=== PATIENT | male | born 1985 | race Hispanic/Latino ===

== ENCOUNTER 2022-06-21 15:32 | Inpatient (IN) | payer SELFPAY ==
--- OUTSIDE RECORDS SUMMARY | 2022-06-21 15:38 | XMS REPORT | Continuity of Care Document ---
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 2019-09-25 2019-09-25 Outpatient Alcanter, MHPL MHPL [id number] 19:01:55 21:10:00 Britney Wilson 2019-09-25 2019-09-25 Emergency E ALCANTER, MHBL MHBL [id number] MHBL 19:01:00 21:10:00 BRITNEY 2019-09-14 2019-09-14 Outpatient MHIE MHIE [id number] Memoria 14:00:00 14:00:00 07 flaquita Bubba 2019-09-14 2019-09-14 Outpatient MHIE MHIE [id number] Memoria 14:00:00 14:00:00 07 flaquita Mac 2018-04-11 2018-04-12 Outpatient nullFlavo MHMG [id number] Memoria 14:45:00 05:59:59 r Primary 06 l Bobby Reinoso 2018-04-11 2018-04-12 Outpatient nullFlavo MHMG [id number] Memoria 14:45:00 05:59:59 r Primary 06 l Bobby Reinoso 2018-04-11 2018-04-11 Outpatient Ajit, MHMG MHMG [id number] 08:45:00 23:59:59 Nixon Juan 06 2018-04-11 2018-04-11 Outpatient MHIE MHIE [id number] Memoria 08:45:00 08:45:00 06 flaquita Mac 2018-03-24 2018-03-26 Phone nullFlavo MHMG [id number] Memoria 21:08:00 05:59:59 Message r Primary 04 l Bobby Reinoso 2018-03-24 2018-03-26 Phone nullFlavo MHMG [id number] Memoria 21:08:00 05:59:59 Message r Primary 04 l Bobby Reinoso 2018-03-24 2018-03-25 Outpatient MHMG MHMG [id number] 15:08:00 23:59:59 04 2018-03-24 2018-03-25 Outpatient MHMG MHMG [id number] 15:08:00 23:59:59 04 2017-08-22 2017-08-22 Ambulatory nullFlavo MHMG [id number] Memoria 14:15:00 14:15:00 Pre-Reg r Primary 05 l Bobby Reinoso 2017-08-22 2017-08-22 Ambulatory nullFlavo MHMG [id number] Memoria 14:15:00 14:15:00 Pre-Reg r Primary 05 l Bobby Bessa 2017-08-22 2017-08-22 Outpatient MHIE MHIE [id number] Memoria 09:15:00 09:15:00 05 flaquita Mac 2017-08-22 2017-08-22 Outpatient Vadim, MHMG MHMG [id number] 09:15:00 09:15:00 Zoya 2017-08-15 2017-08-17 Phone nullFlavo MHMG [id number] Memoria 12:49:00 04:59:59 Message r Primary 03 flaquita Reinoso 2017-08-15 2017-08-17 Phone nullFlavo MHMG [id number] Memoria 12:49:00 04:59:59 Message r Primary 03 flaquita Reinoso 2017-08-15 2017-08-16 Outpatient MHMG MHMG [id number] 07:49:00 23:59:59 2017-08-13 2017-08-15 Phone nullFlavo MHMG [id number] Memoria 15:53:00 04:59:59 Message r Primary 02 flaquita Reinoso 2017-08-13 2017-08-15 Phone nullFlavo MHMG [id number] Memoria 15:53:00 04:59:59 Message r Primary 02 flaquita Reinoso 2017-08-13 2017-08-14 Outpatient MHMG MHMG [id number] 10:53:00 23:59:59 02 2017-08-12 2017-08-14 Phone nullFlavo MHMG [id number] Memoria 13:56:00 04:59:59 Message r Primary 01 flaquita Reinoso 2017-08-12 2017-08-14 Phone nullFlavo MHMG [id number] Memoria 13:56:00 04:59:59 Message r Primary 01 flaquita Reinoso 2017-08-12 2017-08-13 Outpatient MHMG MHMG [id number] 08:56:00 23:59:59 2016-11-26 2016-11-26 Outpatient MHIE MHIE [id number] Memoria 14:15:00 14:15:00 04 flaquita Mac 2016-11-26 2016-11-26 Outpatient MHIE MHIE [id number] Memoria 14:15:00 14:15:00 04 flaquita Mac 2016-10-04 2016-10-04 Outpatient MHIE MHIE [id number] Memoria 16:15:00 16:15:00 03 flaquita Mac 2016-10-04 2016-10-04 Outpatient MHIE MHIE [id number] Memoria 16:15:00 16:15:00 03 flaquita Mac 2016-02-29 2016-02-29 Outpatient MHIE MHIE [id number] Memoria 09:00:00 09:00:00 02 flaquita Mac 2016-02-29 2016-02-29 Outpatient MHIE MHIE [id number] Memoria 09:00:00 09:00:00 02 flaquita Mac 2016-02-02 2016-02-02 Outpatient MHIE MHIE [id number] Memoria 16:15:00 16:15:00 01 flaquita Mac 2016-02-02 2016-02-02 Outpatient MHIE MHIE [id number] Memoria 16:15:00 16:15:00 01 flaquita Mac 2011-10-13 2011-10-13 Emergency nullFlavo [id number] Memoria 19:06:00 19:07:00 r [place] 01 flaquita Mac 2011-10-13 2011-10-13 Emergency nullFlavo [id number] Memoria 19:06:00 19:07:00 r [place] 01 flaquita Mac 2011-03-12 2011-03-12 Emergency [facility] [id number] 17:42:00 19:32:00 -[id number] [facility] Results Test Description Test Time Test Comments Results Result Comments Source CHEMISTRY 2022-04-11 14:28:00 Test Item Value Reference Range Interpretation Comme nts Vitamin B12 Lvl (test code = Vitamin B12 Lvl) [phone] [facility]YdltettGVMPAARGE9687-37-28 14:25:00 Test Item Value Reference Range Interpretation Comments Hgb A1C (test code = Hgb A1C) 5.5 [facility] ClinicDkolienHZSACKASDX1987-10-83 14:25:00 Test Item Value Reference Range Interpretation Comments WBC (test code = WBC) 5.0 3.8-10.8 [facility]ivyhavAYOMMCYAGO6176-66-16 14:25:00 Test Item Value Reference Range Interpretation Comments RBC (test code = RBC) 5.19 4.20-5.80 [facility] HospitalNvctugbQKLIMFZOBV7614-07-02 14:25:00 Test Item Value Reference Range Interpretation Comments Hgb (test code = Hgb) 15.3 13.2-17.1 [facility]ZjowslzXWDAHVIWHA8783-45-39 14:25:00 Test Item Value Reference Range Interpretation Comments Hct (test code = Hct) 44.0 38.5-50.0 [facility] CenterWrwlnasSZBSOQWBQR5162-58-57 14:25:00 Test Item Value Reference Range Interpretation Comments MCV (test code = MCV) 84.8 80.0-100.0 [facility] CenterWjwxmgnANWSOWQZNS7941-21-89 14:25:00 Test Item Value Reference Range Interpretation Comments MCH (test code = MCH) 29.5 pg 27.0-33.0 [facility] CenterWvuzbniCTDMVWFFLK0017-13-73 14:25:00 Test Item Value Reference Range Interpretation Comments MCHC (test code = MCHC) 34.8 32.0-36.0 [facility] CenterEvuiqqfBICKHNQLXT7447-28-17 14:25:00 Test Item Value Reference Range Interpretation Comments RDW (test code = RDW) 12.4 11.0-15.0 [place] 311553-02-22 14:25:00 Test Item Value Reference Range Interpretation Comments Platelet (test code = Platelet) 323 140-400 [facility] CenterUnjngxrOMPQZXAAVK7242-86-80 14:25:00 Test Item Value Reference Range Interpretation Comments MPV (test code = MPV) 8.7 7.5-12.5 [place] 311553-02-22 14:25:00 Test Item Value Reference Range Interpretation Comments Neutrophils # (test code = Neutrophils 3205 7287-6654 #) [facility] CenterQygusjhGCEHGGTWWF1914-16-09 14:25:00 Test Item Value Reference Range Interpretation Comments Lymphocytes # (test code = Lymphocytes 8233 290-2774 #) [facility] CenterCxuyzanXUYCBJRDDV1509-85-94 14:25:00 Test Item Value Reference Range Interpretation Comments Monocytes # (test code = Monocytes #) 310 200-950 [place] 311553-02-22 14:25:00 Test Item Value Reference Range Interpretation Comments Eosinophils # (test code = Eosinophils 210 15-500 #) [facility] CenterIjtungbNDVPQIEAKI9953-70-48 14:25:00 Test Item Value Reference Range Interpretation Comments Basophils # (test code 20 See_Comment [Aut omated message] The = Basophils #) system which generated this result tra nsmitted reference range : <=200. The reference r flakita was not used to int erpret this result as normal/abnormal . [facility] CenterQppdrxhFAQMJCOFDT2126-82-93 14:25:00 Test Item Value Reference Range Interpretation Comments Segs (test code = Segs) 64.1 [facility] CenterZnlhhqxBIFLSTIBTH9358-57-05 14:25:00 Test Item Value Reference Range Interpretation Comments Lymphocytes (test code = Lymphocytes) 25.1 [facility] CenterDpdcoxfHURQMUEZDH2542-83-74 14:25:00 Test Item Value Reference Range Interpretation Comments Monocytes (test code = Monocytes) 6.2 [facility] CenterPahutkyPOZECLHVNR7917-75-75 14:25:00 Test Item Value Reference Range Interpretation Comments Eosinophils (test code = Eosinophils) 4.2 [facility] CenterSdojynvLBXDBJUMQV3125-20-62 14:25:00 Test Item Value Reference Range Interpretation Comments Basophils (test code = Basophils) 0.4 [facility]HswdsdzXZDDHIXGK6603-38-69 14:25:00 Test Item Value Reference Range Interpretation Comments Glucose Lvl (test code = Glucose Lvl) 96 65-99 [facility]anoDjtvbxyDCNFRDRJF7081-25-47 14:25:00 Test Item Value Reference Range Interpretation Comments BUN (test code = BUN) 10 7-25 [facility]anoEqrwzteVAURKAQDA9495-65-34 14:25:00 Test Item Value Reference Range Interpretation Comments Creatinine Lvl (test code = Creatinine 0.78 0.60-1.26 Lvl) [facility]anoGxyvozmEPXCAABHW5006-71-54 14:25:00 Test Item Value Reference Range Interpretation Comments eGFR (test code = eGFR) 118 [facility]anoLfaihdnZMSVWZYVW6097-24-53 14:25:00 Test Item Value Reference Range Interpretation Comments B/C Ratio (test code = B/C NOT APPLICABLE 08-09 Ratio) [facility]anoHqtflxwKXOBBPKAJ7611-76-46 14:25:00 Test Item Value Reference Range Interpretation Comments Sodium Lvl (test code = Sodium Lvl) 131 135-146 [facility] PlanoTytrihaBZIWRGCZT6350-44-20 14:25:00 Test Item Value Reference Range Interpretation Comments Potassium Lvl (test code = Potassium 4.8 3.5-5.3 Lvl) [facility]anoHpytprpYUOUENYRN1067-64-39 14:25:00 Test Item Value Reference Range Interpretation Comments Chloride Lvl (test code = Chloride Lvl) 97 98-110 [facility]anoPdxxbvkBZNRNPXTZ1349-10-16 14:25:00 Test Item Value Reference Range Interpretation Comments CO2 (test code = CO2) 26 20-32 [facility] PlanoBheisusTWIVWRRLQ0439-00-02 14:25:00 Test Item Value Reference Range Interpretation Comments Calcium Lvl (test code = Calcium Lvl) 9.7 8.6-10.3 [facility]anoIkhlpojXCCWSDELY5301-43-93 14:25:00 Test Item Value Reference Range Interpretation Comments Total Protein (test code = Total 7.5 6.1-8.1 Protein) [facility]anoOqsblipTDNMSAUCL9223-10-92 14:25:00 Test Item Value Reference Range Interpretation Comments Albumin Lvl (test code = Albumin Lvl) 4.6 3.6-5.1 [facility] PlanoJalptmcQIAFRALHR6594-96-65 14:25:00 Test Item Value Reference Range Interpretation Comments Globulin (test code = Globulin) 2.9 1.9-3.7 [facility] PlanoVoeslebDXCVABVJS6612-85-85 14:25:00 Test Item Value Reference Range Interpretation Comments A/G Ratio (test code = A/G Ratio) 1.6 1.0-2.5 [facility] PlanoVhyvswoQOJDDVCTA2105-27-09 14:25:00 Test Item Value Reference Range Interpretation Comments Bili Total (test code = Bili Total) 0.5 0.2-1.2 [facility] PlanoEcpldpwGGAEWXBTJ8501-34-53 14:25:00 Test Item Value Reference Range Interpretation Comments Alk Phos (test code = Alk Phos) 88 36-130 [facility] PlanoIkizjxiHHNCXRUOY5436-79-66 14:25:00 Test Item Value Reference Range Interpretation Comments AST (test code = AST) 17 10-40 [facility] PlanoZtvloumLQCKGXXEO4479-08-07 14:25:00 Test Item Value Reference Range Interpretation Comments ALT (test code = ALT) 25 9-46 [facility] PlanoSlsxhycMILRZEVKF2372-02-68 14:25:00 Test Item Value Reference Range Interpretation Comments TSH (test code = TSH) 1.82 0.40-4.50 [facility] PlanoHmxvjvdSUXEWMFLV0963-67-41 14:25:00 Test Item Value Reference Range Interpretation Comments Chol (test code = Chol) 231 [facility] PlanoFqweuxbPNOVCCUSR3665-52-39 14:25:00 Test Item Value Reference Range Interpretation Comments HDL (test code = HDL) 57 [facility] PlanoIrnvzmxEKENEJQAT1920-07-16 14:25:00 Test Item Value Reference Range Interpretation Comments Trig (test code = Trig) 83 [facility] PlanoInqamnqNVQOJSUPG0020-12-62 14:25:00 Test Item Value Reference Range Interpretation Comments LDL (Calculated) (test code = LDL 155 (Calculated)) [facility] PlanoQsifchaAPEDXGOPP9788-20-40 14:25:00 Test Item Value Reference Range Interpretation Comments Chol/HDL Ratio (test code = Chol/HDL 4.1 Ratio) [facility] PlanoVedxelnPDAAQONLY2842-99-27 14:25:00 Test Item Value Reference Range Interpretation Comments Non HDL Chol (test code = Non HDL Chol) 174 [facility] PlanoJtcmtuqDJIBMECKX2353-71-76 14:22:00 Test Item Value Reference Range Interpretation Comments Carbamaz Lvl (test code = Carbamaz Lvl) 10.9 4.0-12.0 [facility] AP1432-16-76 10:47:00 [facility] : 1985 Sex: M [facility] [address] [place] [address] Patient Name: BENJIE WILSON MR #: [id number] : 1985 Age/Sex: 35/M Req#: [id number] Adm Physician: Ordered by: TRUPTI COVARRUBIAS DO Report #: [id number] Location: Room/Bed: _ Procedure: [id number] CT/CT BRAIN WO Exam Date: 08/15/21 Exam Time: 1027 REPORT STATUS: Signed CT BRAIN WO CLINICAL INDICATION: Dizziness COMPARISON: None TECHNIQUE: Noncontrast axial CT imaging of the brain, skull and face. Coronal and sagittal reformats are provided. DOSE REDUCTION: Dose modulation, iterative reconstruction, and/or weight-based adjustment of the mA/kV was utilized to reduce the radiation dose to as low as reasonably achievable. FINDINGS: No intracranial hemorrhage, midline shift or mass effect. Midline structures are normally developed. 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 No hydrocephalus. Orbits are within normal limits. Hyperdense fillingof the right sphenoid and ethmoid sinuses. Scattered areas of nonhyperdense filling within the rightfrontal and left sphenoid sinuses. Postoperative changes from bilateral sphenoethmoid anatomy is an maxillary antrostomies. No calvarial fracture. No significant soft tissue swelling. 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 3.Right-sided paranasal sinus disease with hyperdense filling, which may represent fungal sinusitis. Signed by: Marciano Park on08/15/2021 10:47 AM Dictated By: MARCIANO PARK MD 1049 Transcribed By: TOM on 08/15/21 1047 COPY TO: TRUPTI COVARRUBIAS SINGLE (PORTABLE)2021-08-15 10:43:00 [facility] GIANFRANCO : 1985 Sex: M [place] [address] Patient Name: BENJIE WILSON MR #: [id number] : 1985 Age/Sex: 35/M Req#: [id number] Adm Physician: Ordered by: TRUPTI COVARRUBIAS DO Report #: [id number] Location: ER Room/Bed: _ Procedure: [id number] DX/CHEST SINGLE (PORTABLE) Exam Date: 08/15/21 Exam Time: 1021 REPORT STATUS: Signed Exam: CHEST SINGLE (PORTABLE) Date: 08/15/2021 10:39 AM Indication:Congestion Comparison: None FINDINGS: Lines/Tubes/Devices: None Lungs/pleura:Lungs are well inflated. No focal consolidation or pulmonary edema. No pleural effusion. No pneumothorax. Heart/Mediastinum:Magnified by portable technique.Bones/Soft Tissues: No acute osseous abnormality. Upper abdomen: Unremarkable. IMPRESSION: No focal airspace consolidation, effusion or pneumothorax. Signed by: Antonio Rodriguez on 08/15/2021 10:43 AM Dictated By: ANTONIO RODRIGUEZ MD 1046 Transcribed By:TOM on 08/15/21 1043 COPY TO: TRUPTI COVARRUBIAS DOCXTKSQKSDEGX0472-61-34 21:09:00 Test Item Value Reference Range Interpretation Comments WBC X 10x3 (test code = WBC X 10x3) 5.5 3.8-10.8 [facility] CenterWjzqxfnWHRAXJMQQE9294-31-63 21:09:00 Test Item Value Reference Range Interpretation Comments RBC X 10x6 (test code = RBC X 10x6) 5.04 4.20-5.80 [facility] CenterEvyzgxmPNNVFMVOPJ6257-00-30 21:09:00 Test Item Value Reference Range Interpretation Comments Hgb (test code = Hgb) 14.9 13.2-17.1 [facility] CenterLttpyxeYAIPFKXTNZ4637-09-05 21:09:00 Test Item Value Reference Range Interpretation Comments Hct (test code = Hct) 43.0 38.5-50.0 [facility] CenterHmkcfreYIECGHLZHI9102-18-45 21:09:00 Test Item Value Reference Range Interpretation Comments MCV (test code = MCV) 85.3 80.0-100.0 [facility] CenterUsppcbdGHKZKZLNEX8583-44-18 21:09:00 Test Item Value Reference Range Interpretation Comments MCH (test code = MCH) 29.6 pg 27.0-33.0 [facility] CenterDtjgtiiUYZOLLAEYU2444-49-09 21:09:00 Test Item Value Reference Range Interpretation Comments MCHC (test code = MCHC) 34.7 32.0-36.0 [facility] CenterStevkyxXAYWDTJBJO3939-39-53 21:09:00 Test Item Value Reference Range Interpretation Comments RDW (test code = RDW) 12.4 11.0-15.0 [facility] CenterZczdmzcPZPXRXGOIX6893-89-80 21:09:00 Test Item Value Reference Range Interpretation Comments Platelet (test code = Platelet) 268 140-400 [facility] CenterRsbyzvdXTOJEWMJWZ4473-15-84 21:09:00 Test Item Value Reference Range Interpretation Comments MPV (test code = MPV) 9.9 7.5-12.5 [facility] CenterJdrmjuvYZILQERQCY9590-35-73 21:09:00 Test Item Value Reference Range Interpretation Comments Neutrophils # (test code = Neutrophils 2563 3877-0676 #) [facility] CenterGwvholaIXIDQPFVLG1719-23-37 21:09:00 Test Item Value Reference Range Interpretation Comments Lymphocytes # (test code = Lymphocytes 6278 820-4776 #) [facility] CenterTwctokrKYOTTNJCMW4655-86-10 21:09:00 Test Item Value Reference Range Interpretation Comments Monocytes # (test code = Monocytes #) 440 200-950 [facility] CenterUcorsawAIBUBMKORW4814-10-60 21:09:00 Test Item Value Reference Range Interpretation Comments Eosinophils # (test code = Eosinophils 732 15-500 #) [facility]XdgvtlwERCDTSKSQG4488-20-74 21:09:00 Test Item Value Reference Range Interpretation Comments Basophils # (test code 28 See_Comment [Aut omated message] The = Basophils #) system which generated this result tra nsmitted reference range : <=200. The reference r flakita was not used to int erpret this result as normal/abnormal . [facility] HospitalEttxrkdCQOTKDQRFD9666-78-96 21:09:00 Test Item Value Reference Range Interpretation Comments Segs (test code = Segs) 46.6 [facility] HospitalNebsodvZECNIRRUMW0127-27-33 21:09:00 Test Item Value Reference Range Interpretation Comments Lymphocytes (test code = Lymphocytes) 31.6 [facility] HospitalMuibhmvRONCVOKACY5671-01-46 21:09:00 Test Item Value Reference Range Interpretation Comments Monocytes (test code = Monocytes) 8.0 [facility] HospitalLpomeknMAOULBPJCC8510-58-26 21:09:00 Test Item Value Reference Range Interpretation Comments Eosinophils (test code = Eosinophils) 13.3 [facility]landsOnxorrsPFOJLWFNJM3157-53-63 21:09:00 Test Item Value Reference Range Interpretation Comments Basophils (test code = Basophils) 0.5 [facility] ClinicGkcbzehJSEMZBNIAC7924-83-61 21:09:00 Test Item Value Reference Range Interpretation Comments Carbamaz Lvl (test code = Carbamaz Lvl) 11.8 4.0-12.0 [facility] ZZPJSBEHU8365-45-15 21:06:00 Test Item Value Reference Range Interpretation Comments Hgb A1C (test code = Hgb A1C) 5.3 [facility] METABOLIC PANEL (34232)2020-11-02 13:23:03 Test Item Value Reference Range Interpretation Comments NA (test code = 128 mmol/L 135-145 L 0861429002) K (test code = 4.6 mmol/L 3.5-5.0 0297555797) CL (test code = 94 mmol/L 98-108 L 5656329461) CO2 TOTAL (test code = 23 mmol/L 23-31 4016342817) AGAP (test code = 2-16 1203489003) BUN (test code = 9 mg/dL 7-23 2890235419) GLUCOSE (test code = 100 mg/dL 70-110 7211987942) CREATININE (test code = 0.73 mg/dL 0.60-1.25 6142073270) TOTAL BILI (test code = 0.4 mg/dL 0.1-1.9 7709114536) CALCIUM (test code = 9.6 mg/dL 8.6-10.6 7054227484) T PROTEIN (test code = 8.5 g/dL 6.3-8.2 H 1824191272) ALBUMIN (test code = 4.9 g/dL 3.5-5.0 9312113799) ALK PHOS (test code = 84 U/L 34-122 4173992637) ALTv (test code = 33 U/L 5-50 1742-6) AST(SGOT) (test code = 31 U/L 13-40 2136168863) eGFR (test code = mL/min/1.73m2 5292681357) ELIZABETH (test code = ELIZABETH) Association of Glomerular Filtration Rate (GFR) and Staging of Kidney Disease* + --+ --+ ------+| GFR (mL/min/1.73 m2) ?| With Kidney Damage ?| ?Without Kidney Damage+ --------+ --------+ +| ?>90 ?| ?Stage one ?| ? Normal ?+ ---+ ---+ -------+| ?60-89 ?| ?Stage two ?| ? Decreased GFR ? + --+ --+ ------+| ?30-59 ?| ?Stage three ?| ? Stage three ? + --+ --+ ------+| ?15-29 ?| ?Stage four ? | ? Stage four ?+ ---+ ---+ -------+| ?<15 (or dialysis) ? ?| ?Stage five ? | ? Stage five ?+ ---+ ---+ -------+ *Each stage assumes the associated GFR level has been in effect for at least three months. ?Stages 1 to 5, with or without kidney disease, indicate chronic kidney disease. Notes: Determination of stages one and two (with eGFR >59mL/min/1.73 m2) requires estimation of kidney damage for at least three months as defined by structural or functional abnormalities of the kidney, manifested by either:Pathological abnormalities or Markers of kidney damage (including abnormalities in the composition of the blood or urine or abnormalities in imaging tests). Lab Interpretation Abnormal (test code = 26398-7) [facility]. METABOLIC PANEL (85196)2020-11-02 13:23:03 Test Item Value Reference Range Interpretation Comments NA (test code = 128 mmol/L 135-145 L 5685382186) K (test code = 4.6 mmol/L 3.5-5.0 1987217456) CL (test code = 94 mmol/L 98-108 L 1520731907) CO2 TOTAL (test code = 23 mmol/L 23-31 7647668526) AGAP (test code = 2-16 0310106412) BUN (test code = 9 mg/dL 7-23 7631644760) GLUCOSE (test code = 100 mg/dL 70-110 9478223624) CREATININE (test code = 0.73 mg/dL 0.60-1.25 7059791730) TOTAL BILI (test code = 0.4 mg/dL 0.1-1.4 8336430520) CALCIUM (test code = 9.6 mg/dL 8.6-10.6 5564889030) T PROTEIN (test code = 8.5 g/dL 6.3-8.2 H 5933608651) ALBUMIN (test code = 4.9 g/dL 3.5-5.0 8524626810) ALK PHOS (test code = 84 U/L 34-122 8482946342) ALTv (test code = 33 U/L 5-50 1742-6) AST(SGOT) (test code = 31 U/L 13-40 0639638108) eGFR (test code = mL/min/1.73m2 2907013750) ELIZABETH (test code = ELIZABETH) Association of Glomerular Filtration Rate (GFR) and Staging of Kidney Disease* + --+ --+ ------+| GFR (mL/min/1.73 m2) ?| With Kidney Damage ?| ?Without Kidney Damage+ --------+ --------+ +| ?>90 ?| ?Stage one ?| ? Normal ?+ ---+ ---+ -------+| ?60-89 ?| ?Stage two ?| ? Decreased GFR ? + --+ --+ ------+| ?30-59 ?| ?Stage three ?| ? Stage three ? + --+ --+ ------+| ?15-29 ?| ?Stage four ? | ? Stage four ?+ ---+ ---+ -------+| ?<15 (or dialysis) ? ?| ?Stage five ? | ? Stage five ?+ ---+ ---+ -------+ *Each stage assumes the associated GFR level has been in effect for at least three months. ?Stages 1 to 5, with or without kidney disease, indicate chronic kidney disease. Notes: Determination of stages one and two (with eGFR >59mL/min/1.73 m2) requires estimation of kidney damage for at least three months as defined by structural or functional abnormalities of the kidney, manifested by either:Pathological abnormalities or Markers of kidney damage (including abnormalities in the composition of the blood or urine or abnormalities in imaging tests). Lab Interpretation Abnormal (test code = 42510-2) [facility] WITH [id number] 13:17:24 Test Item Value Reference Range Interpretation Comments WBC (test code = See_Comment [Automated 2390-2) message] The sy stem which generated this result transmitted reference range : 4.20 - 10.70 10*3/?L. The reference range was not used to interpret this result as normal/abnormal . RBC (test code = See_Comment [Automated 139-8) message] The sy stem which generated this result transmitted reference range : 4.26 - 5.52 10*6/?L. The reference range was not used to interpret this result as normal/abnormal . HGB (test code = 15.2 g/dL 12.2-16.4 718-7) HCT (test code = 43.5 % 38.4-49.3 4544-3) MCV (test code = 84.6 fL 81.7-95.6 787-2) MCH (test code = 29.6 pg 26.1-32.7 785-6) MCHC (test code = 34.9 g/dL 31.2-35.0 786-4) RDW-SD (test code = 34.9 fL 38.5-51.6 L 74385-7) RDW-CV (test code = 11.4 % 12.1-15.4 L 788-0) PLT (test code = See_Comment [Automated 777-3) message] The sy stem which generated this result transmitted reference range : 150 - 328 10*3/ ?L. The reference r flakita was not used to interpret this result as normal/abnormal . MPV (test code = 8.7 fL 9.8-13.0 L 42573-0) NRBC/100 WBC (test See_Comment [Automat ed code = [id number]) message] The system which generated this result transmitted reference range : 0.0 - 10.0 /100 WBCs. The refer ence range was not u sed to interpret th is result as normal/abnormal . NRBC x10^3 (test code <0.01 See_Comment [Auto mated = [id number]) message] The s ystem which generated this result transmitted reference range : 10*3/?L. The reference range was not used to interpret this result as normal/abnormal . GRAN MAT (NEUT) % 57.8 % (test code = 770-8) IMM GRAN % (test code 0.20 % = 3421672524) LYMPH % (test code = 29.0 % 736-9) MONO % (test code = 6.9 % 5905-5) EOS % (test code = 5.7 % 713-8) BASO % (test code = 0.4 % 706-2) GRAN MAT x10^3(ANC) 2.83 10*3/uL 1.99-6.95 (test code = 5862186555) IMM GRAN x10^3 (test <0.03 0.00-0.06 code = 4892820605) LYMPH x10^3 (test code 1.42 10*3/uL 1.09-3.23 = 731-0) MONO x10^3 (test code 0.34 10*3/uL 0.36-1.02 L = 742-7) EOS x10^3 (test code = 0.28 10*3/uL 0.06-0.53 711-2) BASO x10^3 (test code <0.03 0.01-0.09 = 704-7) Lab Interpretation Abnormal (test code = 37406-2) [facility] WITH [id number] 13:17:24 Test Item Value Reference Range Interpretation Comments WBC (test code = See_Comment [Automated 6690-2) message] The sy stem which generated this result transmitted reference range : 4.20 - 10.70 10*3/?L. The reference range was not used to interpret this result as normal/abnormal . RBC (test code = See_Comment [Automated 789-8) message] The sy stem which generated this result transmitted reference range : 4.26 - 5.52 10*6/?L. The reference range was not used to interpret this result as normal/abnormal . HGB (test code = 15.2 g/dL 12.2-16.4 718-7) HCT (test code = 43.5 % 38.4-49.3 4544-3) MCV (test code = 84.6 fL 81.7-95.6 787-2) MCH (test code = 29.6 pg 26.1-32.7 785-6) MCHC (test code = 34.9 g/dL 31.2-35.0 786-4) RDW-SD (test code = 34.9 fL 38.5-51.6 L 37553-2) RDW-CV (test code = 11.4 % 12.1-15.4 L 788-0) PLT (test code = See_Comment [Automated 777-3) message] The sy stem which generated this result transmitted reference range : 150 - 328 10*3/ ?L. The reference r flakita was not used to interpret this result as normal/abnormal . MPV (test code = 8.7 fL 9.8-13.0 L 81750-2) NRBC/100 WBC (test See_Comment [Automat ed code = 7243658843) message] The system which generated this result transmitted reference range : 0.0 - 10.0 /100 WBCs. The refer ence range was not u sed to interpret th is result as normal/abnormal . NRBC x10^3 (test code <0.01 See_Comment [Auto mated = 5473020254) message] The s ystem which generated this result transmitted reference range : 10*3/?L. The reference range was not used to interpret this result as normal/abnormal . GRAN MAT (NEUT) % 57.8 % (test code = 770-8) IMM GRAN % (test code 0.20 % = 2319458477) LYMPH % (test code = 29.0 % 736-9) MONO % (test code = 6.9 % 5905-5) EOS % (test code = 5.7 % 713-8) BASO % (test code = 0.4 % 706-2) GRAN MAT x10^3(ANC) 2.83 10*3/uL 1.99-6.95 (test code = 7286030146) IMM GRAN x10^3 (test <0.03 0.00-0.06 code = 5008831937) LYMPH x10^3 (test code 1.42 10*3/uL 1.09-3.23 = 731-0) MONO x10^3 (test code 0.34 10*3/uL 0.36-1.02 L = 742-7) EOS x10^3 (test code = 0.28 10*3/uL 0.06-0.53 711-2) BASO x10^3 (test code <0.03 0.01-0.09 = 704-7) Lab Interpretation Abnormal (test code = 82759-4) [id number] 22:18:00 Test Item Value Reference Range Interpretation Comments Creatinine Lvl (test code = Creatinine 0.77 0.60-1.35 Lvl) [facility] [id number] 22:18:00 Test Item Value Reference Range Interpretation Comments eGFR NON-AFR. THAI (test code = 118 eGFR NON-AFR. THAI) [facility] [id number] 22:18:00 Test Item Value Reference Range Interpretation Comments eGFR (test code = eGFR 136 ) [facility] [id number] 22:18:00 Test Item Value Reference Range Interpretation Comments B/C Ratio (test code = B/C NOT APPLICABLE 08-09 Ratio) [facility] [id number] 22:18:00 Test Item Value Reference Range Interpretation Comments Sodium Lvl (test code = Sodium Lvl) 125 135-146 [place] [id number] 22:18:00 Test Item Value Reference Range Interpretation Comments Potassium Lvl (test code = Potassium 4.1 3.5-5.3 Lvl) [facility]2020-11-16 22:18:00 Test Item Value Reference Range Interpretation Comments Chloride Lvl (test code = Chloride Lvl) 91 98-110 [facility]2020-11-16 22:18:00 Test Item Value Reference Range Interpretation Comments CO2 (test code = CO2) 26 20-32 [facility]2020-11-16 22:18:00 Test Item Value Reference Range Interpretation Comments Calcium Lvl (test code = Calcium Lvl) 9.4 8.6-10.3 [facility]2020-11-16 22:18:00 Test Item Value Reference Range Interpretation Comments Total Protein (test code = Total 7.4 6.1-8.1 Protein) [facility]2020-11-16 22:18:00 Test Item Value Reference Range Interpretation Comments Albumin Lvl (test code = Albumin Lvl) 4.5 3.6-5.1 [facility]2020-11-16 22:18:00 Test Item Value Reference Range Interpretation Comments Globulin (test code = Globulin) 2.9 1.9-3.7 [facility]2020-11-16 22:18:00 Test Item Value Reference Range Interpretation Comments A/G Ratio (test code = A/G Ratio) 1.6 1.0-2.5 [facility]2020-11-16 22:18:00 Test Item Value Reference Range Interpretation Comments Bili Total (test code = Bili Total) 0.4 0.2-1.2 [facility]2020-11-16 22:18:00 Test Item Value Reference Range Interpretation Comments Alk Phos (test code = Alk Phos) 64 36-130 [facility]2020-11-16 22:18:00 Test Item Value Reference Range Interpretation Comments ASPARTATE TRANSAMINASE (test code = 23 10-40 ASPARTATE TRANSAMINASE) [facility]2020-11-16 22:18:00 Test Item Value Reference Range Interpretation Comments ALANINE AMINOTRANSFERASE (test code = 23 9-46 ALANINE AMINOTRANSFERASE) [facility]hkCQOYYSOPKQ8966[facility]-38 22:18:00 Test Item Value Reference Range Interpretation Comments WBC X 10x3 (test code = WBC X 10x3) 4.6 3.8-10.8 [facility]MwwrzaaLGGYCHREKQ5308-38-97 22:18:00 Test Item Value Reference Range Interpretation Comments RBC X 10x6 (test code = RBC X 10x6) 4.69 4.20-5.80 [facility] CenterAewcuazPWXNZVWPDT5587-49-46 22:18:00 Test Item Value Reference Range Interpretation Comments Hgb (test code = Hgb) 14.3 13.2-17.1 [facility] CenterKxnmuzvHVALCGLIBD8657-07-57 22:18:00 Test Item Value Reference Range Interpretation Comments Hct (test code = Hct) 40.8 38.5-50.0 [facility] CenterRjgrxugUVXSQNSISX3755-55-96 22:18:00 Test Item Value Reference Range Interpretation Comments MCV (test code = MCV) 87.0 80.0-100.0 [facility] CenterHrmqclbBQGAKDPPVQ0978-22-52 22:18:00 Test Item Value Reference Range Interpretation Comments MCH (test code = MCH) 30.5 pg 27.0-33.0 [facility] CenterItewfkpKCPGPGQLTA3071-88-75 22:18:00 Test Item Value Reference Range Interpretation Comments MCHC (test code = MCHC) 35.0 32.0-36.0 [facility] CenterEtwdyjbKRNTBEUCAP9650-96-54 22:18:00 Test Item Value Reference Range Interpretation Comments RDW (test code = RDW) 13.0 11.0-15.0 [facility] CenterLykddrtHTXWEAOXLP3004-86-16 22:18:00 Test Item Value Reference Range Interpretation Comments Platelet (test code = Platelet) 271 140-400 [facility] CenterYeeoxniYFNKTLOIZZ1067-48-91 22:18:00 Test Item Value Reference Range Interpretation Comments MPV (test code = MPV) 9.4 7.5-12.5 [facility] CenterRlnseumFVADTJNUYT4827-53-63 22:18:00 Test Item Value Reference Range Interpretation Comments Neutrophils # (test code = Neutrophils 2461 4402-1887 #) [facility] CenterJjcupovRZKFTGFXNA2093-04-24 22:18:00 Test Item Value Reference Range Interpretation Comments Lymphocytes # (test code = Lymphocytes 0423 109-1473 #) [facility] CenterItfwiknFYKLHBAFAL5871-85-97 22:18:00 Test Item Value Reference Range Interpretation Comments Monocytes # (test code = Monocytes #) 423 200-950 [facility] CenterSvjrcmpWUUEKKHFJL5451-00-89 22:18:00 Test Item Value Reference Range Interpretation Comments Eosinophils # (test code = Eosinophils 322 15-500 #) [facility]NryvqieHMDHGREDEC1665-03-26 22:18:00 Test Item Value Reference Range Interpretation Comments Basophils # (test code 9 See_Comment [Aut omated message] The = Basophils #) system which generated this result tra nsmitted reference range : <=200. The reference r flaktia was not used to int erpret this result as normal/abnormal . [facility]landsFrcyfszPLTGTWXCPO6633-61-90 22:18:00 Test Item Value Reference Range Interpretation Comments Segs (test code = Segs) 53.5 [facility] ClinicXgbgcniGHTMYUANZL9613-77-00 22:18:00 Test Item Value Reference Range Interpretation Comments Lymphocytes (test code = Lymphocytes) 30.1 [facility] ClinicQzsnqhiCGBNEUGVOQ0011-45-97 22:18:00 Test Item Value Reference Range Interpretation Comments Monocytes (test code = Monocytes) 9.2 [facility]landsNhjpswdKWCLODFGSA3014-17-26 22:18:00 Test Item Value Reference Range Interpretation Comments Eosinophils (test code = Eosinophils) 7.0 [facility]landsMyjfpsxGFJCSKLCRC6194-69-13 22:18:00 Test Item Value Reference Range Interpretation Comments Basophils (test code = Basophils) 0.2 [facility] ClinicXyfhirzONSZASACJH3669-91-68 22:18:00 Test Item Value Reference Range Interpretation Comments Carbamaz Lvl (test code = Carbamaz Lvl) 12.6 4.0-12.0 [facility]landsT[facility] [id number] 22:18:00 Test Item Value Reference Range Interpretation Comments Glucose Lvl (test code = Glucose Lvl) 84 65-99 [facility] [id number] 22:18:00 Test Item Value Reference Range Interpretation Comments BUN (test code = BUN) 12 7-25 [facility] [id number] 22:18:00 Test Item Value Reference Range Interpretation Comments Creatinine Lvl (test code = Creatinine 0.77 0.60-1.35 Lvl) [facility] [id number] 22:18:00 Test Item Value Reference Range Interpretation Comments eGFR NON-AFR. THAI (test code = 118 eGFR NON-AFR. THAI) [facility] [id number] 22:18:00 Test Item Value Reference Range Interpretation Comments eGFR (test code = eGFR 136 ) [facility]landsKarrot RewardsADVENTHEALTH HENDERSONVILLEMFPCH1882-92-17 22:18:00 Test Item Value Reference Range Interpretation Comments B/C Ratio (test code = B/C NOT APPLICABLE 08-09 Ratio) [facility]2020-11-16 22:18:00 Test Item Value Reference Range Interpretation Comments Sodium Lvl (test code = Sodium Lvl) 125 135-146 [facility]landsKarrot RewardsADVENTHEALTH HENDERSONVILLETRRPC0657-22-00 22:18:00 Test Item Value Reference Range Interpretation Comments Potassium Lvl (test code = Potassium 4.1 3.5-5.3 Lvl) [facility]2020-11-16 22:18:00 Test Item Value Reference Range Interpretation Comments Chloride Lvl (test code = Chloride Lvl) 91 98-110 [facility]landsKarrot RewardsADVENTHEALTH HENDERSONVILLEMNITZ0132-44-13 22:18:00 Test Item Value Reference Range Interpretation Comments CO2 (test code = CO2) 26 20-32 [facility]landsTail [id number] 22:18:00 Test Item Value Reference Range Interpretation Comments Calcium Lvl (test code = Calcium Lvl) 9.4 8.6-10.3 [facility]2020-11-16 22:18:00 Test Item Value Reference Range Interpretation Comments Total Protein (test code = Total 7.4 6.1-8.1 Protein) [facility]landsKarrot RewardsADVENTHEALTH HENDERSONVILLEAHWXJ3475-61-51 22:18:00 Test Item Value Reference Range Interpretation Comments Albumin Lvl (test code = Albumin Lvl) 4.5 3.6-5.1 [facility]landsT[facility] [id number] 22:18:00 Test Item Value Reference Range Interpretation Comments Globulin (test code = Globulin) 2.9 1.9-3.7 [place] [id number] 22:18:00 Test Item Value Reference Range Interpretation Comments A/G Ratio (test code = A/G Ratio) 1.6 1.0-2.5 [facility]2020-11-16 22:18:00 Test Item Value Reference Range Interpretation Comments Bili Total (test code = Bili Total) 0.4 0.2-1.2 [facility]landsKarrot RewardsADVENTHEALTH HENDERSONVILLEUQUID0728-86-88 22:18:00 Test Item Value Reference Range Interpretation Comments Alk Phos (test code = Alk Phos) 64 36-130 [facility]2020-11-16 22:18:00 Test Item Value Reference Range Interpretation Comments ASPARTATE TRANSAMINASE (test code = 23 10-40 ASPARTATE TRANSAMINASE) [facility]2020-11-16 22:18:00 Test Item Value Reference Range Interpretation Comments ALANINE AMINOTRANSFERASE (test code = 23 9-46 ALANINE AMINOTRANSFERASE) [facility] CenterVksycfnYYIJIEIVSS5959-64-10 22:18:00 Test Item Value Reference Range Interpretation Comments WBC X 10x3 (test code = WBC X 10x3) 4.6 3.8-10.8 [facility] CenterDjpgxgtLDSQVKETQF2873-53-84 22:18:00 Test Item Value Reference Range Interpretation Comments RBC X 10x6 (test code = RBC X 10x6) 4.69 4.20-5.80 [place] [address]-11-16 22:18:00 Test Item Value Reference Range Interpretation Comments Hgb (test code = Hgb) 14.3 13.2-17.1 [facility] CenterIervdmlMVMYMWNKPI9634-57-73 22:18:00 Test Item Value Reference Range Interpretation Comments Hct (test code = Hct) 40.8 38.5-50.0 [place] [address]-11-16 22:18:00 Test Item Value Reference Range Interpretation Comments MCV (test code = MCV) 87.0 80.0-100.0 [place] 311550-11-16 22:18:00 Test Item Value Reference Range Interpretation Comments MCH (test code = MCH) 30.5 pg 27.0-33.0 [place] 311550-11-16 22:18:00 Test Item Value Reference Range Interpretation Comments MCHC (test code = MCHC) 35.0 32.0-36.0 [place] 311550-11-16 22:18:00 Test Item Value Reference Range Interpretation Comments RDW (test code = RDW) 13.0 11.0-15.0 [place] [address]-11-16 22:18:00 Test Item Value Reference Range Interpretation Comments Platelet (test code = Platelet) 271 140-400 [place] 311550-11-16 22:18:00 Test Item Value Reference Range Interpretation Comments MPV (test code = MPV) 9.4 7.5-12.5 [facility] CenterGitanjkXBIPPCNQJG1496-16-60 22:18:00 Test Item Value Reference Range Interpretation Comments Neutrophils # (test code = Neutrophils 2461 4704-4353 #) [facility] ClinicSnyacrnHDINOTAZVK6565-79-89 22:18:00 Test Item Value Reference Range Interpretation Comments Lymphocytes # (test code = Lymphocytes 5589 032-6324 #) [facility]VuebjkrKAGJSYICFG4326-14-62 22:18:00 Test Item Value Reference Range Interpretation Comments Monocytes # (test code = Monocytes #) 423 200-950 [facility] HospitalNxeymavVJTOWVLBVT2116-18-26 22:18:00 Test Item Value Reference Range Interpretation Comments Eosinophils # (test code = Eosinophils 322 15-500 #) [facility] HospitalBsjpmyeZONNXWDBFQ1435-86-67 22:18:00 Test Item Value Reference Range Interpretation Comments Basophils # (test code 9 See_Comment [Aut omated message] The = Basophils #) system which generated this result tra nsmitted reference range : <=200. The reference r flakita was not used to int erpret this result as normal/abnormal . [facility] CenterBbtnnbiHXQSHFLNOL6151-77-30 22:18:00 Test Item Value Reference Range Interpretation Comments Segs (test code = Segs) 53.5 [facility] CenterNcaisyzFNMVANFBRZ4635-03-52 22:18:00 Test Item Value Reference Range Interpretation Comments Lymphocytes (test code = Lymphocytes) 30.1 [facility] CenterXdzflbxVURORERXJO6395-50-30 22:18:00 Test Item Value Reference Range Interpretation Comments Monocytes (test code = Monocytes) 9.2 [facility] CenterIqmejrgKBXHRGRYIH3312-06-26 22:18:00 Test Item Value Reference Range Interpretation Comments Eosinophils (test code = Eosinophils) 7.0 [facility] HospitalYwjqxhrSFFLDHTJPP7376-63-09 22:18:00 Test Item Value Reference Range Interpretation Comments Basophils (test code = Basophils) 0.2 [facility] ClinicUgpwjzdDVYPSBPRVI5561-08-63 22:18:00 Test Item Value Reference Range Interpretation Comments Carbamaz Lvl (test code = Carbamaz Lvl) 12.6 4.0-12.0 [facility] [id number] 22:18:00 Test Item Value Reference Range Interpretation Comments Glucose Lvl (test code = Glucose Lvl) 84 65-99 [facility] RZBQO9120-62-17 22:18:00 Test Item Value Reference Range Interpretation Comments BUN (test code = BUN) 12 7-25 [facility]"
[2022-06-21 16:49] LABS: Absolute Lymphocytes (CBC) 1.5 K/uL (0.7-4.9); Hematocrit 42.4 % (39.6-49.0); Lymphocytes % 27.2 % (15.3-44.8); MCV 83.8 fL (80-100); MPV 6.7 fL (7.6-11.3); RBC Red Blood Cell Count 5.05 M/uL (4.33-5.43)
[2022-06-21] MEDS ORDERED: ONDANSETRON 4 MG/2 ML VIAL ONE (17:04)
[2022-06-21] MEDS ORDERED: NA CHLORIDE 0.9% 1,000 ML ONE (17:04)
[2022-06-21] MEDS ORDERED: KETOROLAC 30 MG/ML INJ ONE (17:04)
[2022-06-21 17:10] LABS: Albumin 4.3 g/dL (3.4-5.0); Bilirubin Total 0.3 mg/dL (0.2-1.0); Potassium 3.6 mEq/L (3.5-5.1); Protein, Total 8.1 g/dL (6.4-8.2)
--- NOTE | 2022-06-21 17:32 | RAD REPORT ---
EXAM DESCRIPTION: CTAbdomen Pelvis W Contrast - 06/21/2022 5:17 pm CLINICAL HISTORY: Abdominal pain. ABD PAIN COMPARISON: <Comparisons> TECHNIQUE: Biphasic CT imaging of the abdomen and pelvis was performed with 100 ml non-ionic IV cont rast. All CT scans are performed using dose optimization technique as appropriate and may include automated exposure control or mA/KV adjustment according to patient size. FINDINGS: The lung bases are clear. The liver, spleen, pancreas, adrenal glands and kidneys are within normal limits. 24 mm benign right renal cyst. No bowel obstruction, free air, free fluid or abscess. Mild to moderate colonic stool. The appendix i s normal. No evidence of significant lymphadenopathy. No suspicious bony findings. Small fat containing left inguinal hernia. IMPRESSION: No acute intra-abdominal or pelvic finding.
--- NOTE | 2022-06-21 17:46 | ER ---
Nurse's Notes [facility] Name: Martin Wilson Age: 36 yrs Sex: Male : 1985 Arrival Date: 06/21/2022 Time: 15:32 Bed 12 Private MD: Diagnosis: Hyponatremia Presentation: 06/21 15:45 Chief complaint: Patient states: RLQ pain that began on Saturday. Pt denies aa5 nausea/vomiting. Coronavirus screen: At this time, the client does not indicate any symptoms associated with coronavirus-19. Ebola Screen: Patient denies travel to an Ebola-affected area in the 21 days before illness onset. Initial Sepsis Screen: Does the patient meet any 2 criteria? No. Patient's initial sepsis screen is negative. Does the patient have a suspected source of infection? No. Patient's initial sepsis screen is negative. Risk Assessment: Do you want to hurt yourself or someone else? Patient reports no desire to harm self or others. Onset of symptoms was June 2022. 15:45 Acuity: MIKE 3 aa5 15:45 Method Of Arrival: Ambulatory aa5 Historical: - Allergies: 15:46 No Known Allergies; aa5 - PMHx: 15:46 seizures; aa5 - PSHx: 15:46 Tonsillectomy; polyps from nasal cavity; aa5 - Immunization history:: Adult Immunizations unknown. - Social history:: Smoking status: Patient denies any tobacco usage or history of. Screenin:53 [facility] ED Fall Risk Assessment (Adult) History of falling in the last 3 months, mb9 including since admission No falls in past 3 months (0 pts) Confusion or Disorientation No (0 pts) Intoxicated or Sedated No (0 pts) Impaired Gait No (0 pts) Mobility Assist Device Used No (0 pt) Altered Elimination No (0 pt) Score/Fall Risk Level 0 - 2 = Low Risk Oriented to surroundings, Maintained a safe environment, Educated pt \T\ family on fall prevention, incl call for assistance when getting out of bed. Abuse screen: Denies threats or abuse. Nutritional screening: No deficits noted. Tuberculosis screening: No symptoms or risk factors identified. Assessment: 16:52 General: Appears uncomfortable, Behavior is calm, cooperative, appropriate for age. mb9 Pain: Complains of pain in abdomen Pain does not radiate. Quality of pain is described as throbbing, Pain began suddenly. Neuro: Level of Consciousness is awake, alert, obeys commands, Oriented to person, place, time, situation, Appropriate for age. Cardiovascular: Patient's skin is warm and dry. Respiratory: Airway is patent Respiratory effort is even, unlabored, Respiratory pattern is regular, symmetrical. GI: Abdomen is round non-distended, Bowel sounds present X 4 quads. Abd is soft Abdomen is tender to palpation in right lower quadrant. Derm: Skin is pink, warm \T\ dry. Musculoskeletal: Range of motion: intact in all extremities. 19:58 Reassessment: gave report to admitting nurse ANAIS Steiner. mb9 Vital Signs: 15:45 BP 133 / 92; Pulse 71; Resp 20 S; Temp 98.2(TE); Pulse Ox 97% on R/A; Weight 117.93 kg aa5 (R); Height 5 ft. 10 in. (R); 16:51 BP 118 / 88; Pulse 78; Resp 16; Pulse Ox 99% ; mb9 19:39 BP 116 / 86; Pulse 84; Resp 18; Pulse Ox 100% ; mb9 15:45 Body Mass Index 37.31 (117.93 kg, 177.8 cm) aa5 ED Course: 15:41 Patient arrived in ED. am2 15:43 [facility]C [facility] kb 15:43 Mark Casper MD is Attending Physician. kb 15:45 Arm band placed on. aa5 15:46 Triage completed. aa5 16:51 Gisele Smith RN is Primary Nurse. mb9 16:53 Placed in gown. Bed in low position. Call light in reach. Side rails up X 1. Client mb9 placed on continuous cardiac and pulse oximetry monitoring. NIBP monitoring applied. 16:53 Inserted saline lock: 20 gauge in left antecubital area, using aseptic technique. mb9 16:54 No provider procedures requiring assistance completed. mb9 16:54 CBC with Diff Sent. mb9 16:54 CMP Sent. mb9 16:54 Lipase Sent. mb9 16:54 Urinalysis w/ reflexes Sent. mb9 17:19 CT Abd/Pelvis - IV Contrast Only In Process Unspecified. EDMS 17:45 Ramez Calderon MD is Hospitalizing Provider. kb 17:45 Adolph Díaz is Hospitalizing Provider. kb 19:39 Patient admitted, IV remains in place. mb9 Administered Medications: 17:20 Drug: NS 0.9% IV 1000 ml Route: IV; Rate: 1000 ml; Site: left antecubital; mb9 17:20 Drug: Ondansetron IVP 4 mg Route: IVP; Site: left antecubital; mb9 17:24 Drug: Ketorolac IVP 15 mg Route: IVP; Site: left antecubital; mb9 Medication: 16:53 VIS not applicable for this client. mb9 Outcome: 17:46 Decision to Hospitalize by Provider. kb 19:39 Admitted to Med/surg accompanied by tech, via wheelchair, room 218, with chart. mb9 19:39 Condition: stable 19:39 Instructed on the need for admit. 20:06 Patient left the ED. mb9 Signatures: Dispatcher [employer] EDMS Patrizia Ryder, WIRELESS COMMUNICATIONS ENGINEER-C WIRELESS COMMUNICATIONS ENGINEER-CkHien Noel, RN RN aa5 Anai Mendez Mary Beth RN RN mb9 Corrections: (The following items were deleted from the chart) 15:47 15:46 PSHx: None; momo barr
--- NOTE | 2022-06-21 17:46 | EDPHYS ---
Physician Documentation [facility] Name: Martin Wilson Age: 36 yrs Sex: Male : 1985 Arrival Date: 06/21/2022 Time: 15:32 Bed 12 Private MD: ED Physician Mark Casper HPI: 06/21 17:03 This 36 yrs old Male presents to ER via Ambulatory with complaints of kb Abdominal Pain. 17:03 The patient presents with abdominal pain right lower quadrant. Onset: The kb symptoms/episode began/occurred 3 day(s) ago. The symptoms do not radiate. Associated signs and symptoms: none. The symptoms are described as constant. Modifying factors: The symptoms are alleviated by nothing, the symptoms are aggravated by movement, pressure. Severity of pain: At its worst the pain was moderate in the emergency department the pain is unchanged. The patient has not experienced similar symptoms in the past. The patient has not recently seen a physician. Historical: - Allergies: 15:46 No Known Allergies; aa5 - PMHx: 15:46 seizures; aa5 - PSHx: 15:46 Tonsillectomy; polyps from nasal cavity; aa5 - Immunization history:: Adult Immunizations unknown. - Social history:: Smoking status: Patient denies any tobacco usage or history of. ROS: 17:03 Constitutional: Negative for fever, chills, and weight loss. kb 17:03 Abdomen/GI: Positive for abdominal pain, Negative for nausea, vomiting, and diarrhea. 17:03 All other systems are negative. Exam: 17:03 Constitutional: This is a well developed, well nourished patient who is awake, alert, kb and in no acute distress. Head/Face: Normocephalic, atraumatic. ENT: Moist Mucous membranes Cardiovascular: Regular rate and rhythm with a normal S1 and S2. No gallops, murmurs, or rubs. No pulse deficits. Respiratory: Respirations even and unlabored. No increased work of breathing. Talking in full sentences Skin: Warm, dry with normal turgor. Normal color. MS/ Extremity: Pulses equal, no cyanosis. Neurovascular intact. Full, normal range of motion. Neuro: Awake and alert, GCS 15, oriented to person, place, time, and situation. Moves all extremities. Normal gait. 17:03 Abdomen/GI: Inspection: abdomen appears normal, Bowel sounds: normal, Palpation: soft, in all quadrants, moderate abdominal tenderness, in the right lower quadrant. Vital Signs: 15:45 BP 133 / 92; Pulse 71; Resp 20 S; Temp 98.2(TE); Pulse Ox 97% on R/A; Weight 117.93 kg aa5 (R); Height 5 ft. 10 in. (R); 16:51 BP 118 / 88; Pulse 78; Resp 16; Pulse Ox 99% ; mb9 19:39 BP 116 / 86; Pulse 84; Resp 18; Pulse Ox 100% ; mb9 15:45 Body Mass Index 37.31 (117.93 kg, 177.8 cm) aa5 MDM: 15:54 Patient medically screened. kb 17:03 Differential diagnosis: appendicitis, diverticulitis, non-specific abd pain. Data kb reviewed: vital signs, nurses notes. 17:39 Consideration of Admission/Observation Patient was admitted/placed on observation. kb Counseling: I had a detailed discussion with the patient and/or guardian regarding: the historical points, exam findings, and any diagnostic results supporting the discharge/admit diagnosis, lab results, radiology results, the need for further work-up and treatment in the hospital. ED course: Discussed with Dr Casper. Will admit for hyponatremia. 06/21 15:57 Order name: CBC with Diff; Complete Time: 17:03 kb 06/21 15:57 Order name: CMP; Complete Time: 17:11 kb 06/21 15:57 Order name: Lipase; Complete Time: 17:11 kb 06/21 15:57 Order name: Urinalysis w/ reflexes; Complete Time: 18:13 kb 06/21 15:57 Order name: CT Abd/Pelvis - IV Contrast Only; Complete Time: 17:35 kb 06/21 15:57 Order name: IV Saline Lock; Complete Time: 16:54 kb 06/21 15:57 Order name: Labs collected and sent; Complete Time: 16:54 kb Administered Medications: 17:20 Drug: NS 0.9% IV 1000 ml Route: IV; Rate: 1000 ml; Site: left antecubital; mb9 17:20 Drug: Ondansetron IVP 4 mg Route: IVP; Site: left antecubital; mb9 17:24 Drug: Ketorolac IVP 15 mg Route: IVP; Site: left antecubital; mb9 Disposition Summary: 06/21/22 17:46 Hospitalization Ordered Hospitalization Status: Observation kb Provider: Adolph Díaz Location: Telemetry/MedSurg (observation) kb Condition: Stable kb Problem: new kb Symptoms: are unchanged kb Bed/Room Type: Standard kb Room Assignment: 218(06/21/22 19:20) mw Diagnosis - Hyponatremia kb Forms: - Medication Reconciliation Form kb - SBAR form kb Signatures: Dispatcher [employer] EDPatrizia Cantu FNP-C FNP-Ckb Webb, Martha RN RN mw Hien Issa RN RN aa5 iGsele Smith RN RN mb9 Corrections: (The following items were deleted from the chart) 15:47 15:46 PSHx: None; aa5 aa5 19:20 17:46 kb mw
[2022-06-21 18:02] LABS: Urine Bacteria None Seen /HPF (<20); Urine RBC <5 /HPF (None Seen)
[2022-06-21 18:06] LABS: Specific Gravity 1.012 (1.005-1.030); Urine Bilirubin NEGATIVE (Negative); Urine Blood Negative (Negative); Urine Clarity Clear (Clear); Urine Color Light-Yellow (Yellow); Urine Glucose NEGATIVE (Negative); Urine Protein NEGATIVE (Negative); Urine Urobilinogen Normal (Normal)
--- NOTE | 2022-06-21 18:51 | P.HP ---
Certification for Inpatient Patient admitted to: Observation With expected LOS: <2 Midnights Patient will require the following post-hospital care: None Practitioner: I am a practitioner with admitting privileges, knowledge of patient current condition, hospital course, and medical plan of care. Services: Services provided to patient in accordance with Admission requirements found in Title 42 Section 412.3 of the Code of Federal Regulations Patient History Date of Service: 06/22/22 Reason for admission: Hyponatremia History of Present Illness: Mr. Wilson is a 36 year old male with past medical history of epilepsy who presented to the emergency department with complaints of 2 days of right lower quadrant pain. He denies nausea, vomiting, diarrhea, constipation, abdominal distension, anorexia, melena, fever. He states the pain is better when he's lying down. CT did not reveal anything to explain the patient's symptoms. His labs incidentally revealed a sodium of 123. He does take tegretol daily for epilepsy, has not had a seizure in 10+ years, and does not think he has had issues with hyponatremia in the past. Given his unexplained abdominal pain and hyponatremia, ED provider wishes to admit patient for further management. Allergies No Known Allergies Allergy (Verified 06/21/22 20:32) Home medications list reviewed: Yes Home Medications: Carbamazepine [Tegretol] 600 mg PO BEDTIME 06/21/22 carBAMazepine [Tegretol] 400 mg PO DAILY WITH BREAKFAST 06/21/22 - Past Medical/Surgical History Diabetic: No -: Epilepsy -: Tonsillectomy -: Nasal polypectomy Psychosocial/ Personal History: Patient lives at home with his family. - Family History Family History: Reviewed- Non-Contributory - Family History Mother -: Heart disease, Hypertension - Social History Smoking Status: Never smoker Alcohol use: Yes CD- Drugs: No Caffeine use: Yes Place of Residence: Home Review of Systems Gastrointestinal: Abdominal Pain Physical Examination - Vital Signs Temperature: 98.2 F Blood Pressure: 118/88 Pulse: 78 Respirations: 16 Pulse Ox (%): 99 - Physical Exam General: Alert, In no apparent distress HEENT: Atraumatic, EOMI, Sclerae nonicteric Neck: Supple, 2+ carotid pulse no bruit Respiratory: Clear to auscultation bilaterally, Normal air movement Cardiovascular: Regular rate/rhythm, Normal S1 S2 Gastrointestinal: Normal bowel sounds, Non-distended, No masses, No rebound, No guarding, Tenderness (moderate right lower quadrant ) Musculoskeletal: No tenderness Integumentary: No rashes Neurological: Normal speech, Normal affect - Studies Laboratory Data (last 24 hrs) 06/21/22 16:35: Sodium 123 L, Potassium 3.6, BUN 10, Creatinine 0.83, Glucose 111 H, Total Bilirubin 0.3, AST 16, ALT 36, Alkaline Phosphatase 94, Lipase 21 06/21/22 16:35: WBC 5.50, Hgb 14.9, Hct 42.4, Plt Count 291 Assessment and Plan - Problems (Diagnosis) (1) Hyponatremia Current Visit: Yes Status: Acute (2) Epilepsy Current Visit: Yes Status: Chronic Qualifiers: Epilepsy type: unspecified Intractability: not intractable Status epilepticus: without status epilepticus Qualified Code(s): G40.909 - Epilepsy, unspecified, not intractable, without status epilepticus (3) Right lower quadrant abdominal pain Current Visit: Yes Status: Acute - Plan Hypontatremia Likely secondary to tegretol use. He reports feeling dizzy and weak on Saturday. Serum osmolality 273. Urine sodium and osmolality pending. Sodium trend 123 -> 128 on NS at 75 cc/hr. RLQ pain Unclear etiology, could be early appendicitis. Pain medication as needed. CT showed 24 mm benign right renal cyst and small fat containing left inguinal hernia. Check lipid panel and A1c, blood sugar has been slightly elevated. Monitor and replete electrolytes per protocol. Reconcile and continue home medications. Discharge Plan: Home Plan to discharge in: 24 Hours - Advance Directives Does patient have a Living Will: No Does patient have a Durable POA for Healthcare: No - Code Status/Comfort Care Code Status Assessed: Yes Code Status: Full Code Physician Review: Patient Assessed, Agree with Above Assessment and Plan Critical Care: No Time Spent Managing Pts Care (In Minutes): 50
[2022-06-21 20:20] VITALS: O2SAT 100
[2022-06-21] MEDS ORDERED: ACETAMINOPHEN 500 MG TAB PO PRN (20:51)
[2022-06-21] MEDS ORDERED: ONDANSETRON 4 MG/2 ML VIAL IV PRN (20:51)
[2022-06-21] MEDS: MORPHINE 2 MG/ML SYR IV PRN (21:33)
[2022-06-21] MEDS: NA CHLORIDE 0.9% 1,000 ML IV SCH (21:33)
[2022-06-21 23:10] LABS: Potassium 3.7 mEq/L (3.5-5.1)
[2022-06-21 23:46] VITALS: BMI 37.0
[2022-06-22 03:53] LABS: Absolute Lymphocytes (CBC) 1.9 K/uL (0.7-4.9); Hematocrit 39.6 % (39.6-49.0); Lymphocytes % 42.1 % (15.3-44.8); MCV 84.9 fL (80-100); MPV 6.9 fL (7.6-11.3); RBC Red Blood Cell Count 4.67 M/uL (4.33-5.43)
[2022-06-22 03:54] LABS: Magnesium 2.2 mg/dL (1.6-2.4); Phosphorus 4.7 mg/dL (2.5-4.9); Potassium 3.8 mEq/L (3.5-5.1)
[2022-06-22 03:57] LABS: Thyroid Stimulating Hormone 3.86 uIU/mL (0.358-3.740)
[2022-06-22] MEDS ORDERED: POTASSIUM CL SA 10 MEQ TAB PO ONE (04:44)
[2022-06-22] MEDS: NA CHLORIDE 0.9% 1,000 ML IV SCH ×2 (10:40→20:35)
[2022-06-22] MEDS: MORPHINE 2 MG/ML SYR IV PRN (11:36)
--- NOTE | 2022-06-22 14:29 | P.PN ---
Subjective Date of Service: 06/22/22 Chief Complaint: Hyponatremia Physical Examination - Vital Signs Temperature: 97.3 F Blood Pressure: 125/75 Pulse: 57 Respirations: 12 Pulse Ox (%): 90 - Studies Laboratory Data (last 24 hrs) 06/21/22 16:35: Sodium 123 L, Potassium 3.6, BUN 10, Creatinine 0.83, Glucose 111 H, Total Bilirubin 0.3, AST 16, ALT 36, Alkaline Phosphatase 94, Lipase 21 06/21/22 16:35: WBC 5.50, Hgb 14.9, Hct 42.4, Plt Count 291 Assessment And Plan - Current Problems (Diagnosis) (1) Hyponatremia Current Visit: Yes Status: Acute (2) Right lower quadrant abdominal pain Current Visit: Yes Status: Acute (3) Epilepsy Current Visit: Yes Status: Chronic Qualifiers: Epilepsy type: unspecified Intractability: not intractable Status epilepticus: without status epilepticus Qualified Code(s): G40.909 - Epilepsy, unspecified, not intractable, without status epilepticus - Plan Physical Exam General: Alert, In no apparent distress Neck: Supple. Respiratory: Clear to auscultation bilaterally, Normal air movement Cardiovascular: Regular rate/rhythm, Normal S1 S2 Gastrointestinal: Normal bowel sounds, Non-distended, No masses, No rebound, No guarding, No tenderness Musculoskeletal: No tenderness Integumentary: No rashes Neurological: Normal speech, Normal affect. Plan: Sodium level is improving. 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 Case discussed with Neurology-Dr. Castellon Start Keppra 1g IVPB loading dose x 1, then Keppra 500 mg po bid. Monitor sodium level. CT abdomen and pelvis: no abdominal pathology, no appendicitis Serial abdominal examination.
[2022-06-22] MEDS ORDERED: levETIRAcetam 1,000 MG in NA CHLORIDE 0.9% 100 ML IV ONE (15:15)
--- NOTE | 2022-06-22 16:27 | P.CNS ---
Date of Consult: 06/22/22 Reason for Consult: Hyponatremia Requesting Physician: jaden spicer Chief Complaint: Hyponatremia History of Present Illness: 36M w/ PMHx of seizure on tegretol for years, was told by PCP at [facility] that his serum Na's have been somewhat low for the past several mos, recent sick contact, then developed acute viral prodrome w/ RLQ abd pain/N/V/fever & anorexia 3 days ago, found to have hyponatremia [address] scan of the abdomen and pelvis did not reveal any acute pathology to explain patient's symptoms. serum sodium improved to 128 today. Allergies No Known Allergies Allergy (Verified 06/21/22 20:32) Home Medications: Carbamazepine [Tegretol] 600 mg PO BEDTIME 06/21/22 carBAMazepine [Tegretol] 400 mg PO DAILY WITH BREAKFAST 06/21/22 - Past Medical/Surgical History Diabetic: No -: Epilepsy -: Tonsillectomy -: Nasal polypectomy Psychosocial/ Personal History: Patient lives at home with his family. - Family History Mother Medical History: Heart disease, Hypertension - Social History Alcohol use: Yes CD- Drugs: No Caffeine use: Yes Place of Residence: Home Review of Systems General: Fever, Malaise Eyes: Unremarkable ENT: Unremarkable Respiratory: Unremarkable Cardiovascular: Unremarkable Gastrointestinal: Nausea, Vomiting, Abdominal Pain Genitourinary: Unremarkable Musculoskeletal: Unremarkable Integumentary: Unremarkable Neurological: Seizures Lymphatics: Unremarkable Physical Examination Temp Pulse Resp BP Pulse Ox 97.3 F 57 12 125/75 90 L 06/22/22 15:06 06/22/22 15:06 06/22/22 15:06 06/22/22 15:06 06/22/22 15:06 General: In no apparent distress HEENT: Atraumatic, Normocephalic Neck: Supple, JVD not distended Respiratory: Clear to auscultation bilaterally, Other (symmetric chest expansion) Cardiovascular: No rubs, No murmurs Gastrointestinal: Soft and benign, Non-distended Musculoskeletal: No clubbing, No swelling Integumentary: No warmth Neurological: Normal speech, Normal tone Lymphatics: No axilla or inguinal lymphadenopathy Urinary: Other (no bladder distention) External genitalia: Deferred Rectal: Deferred Laboratory Data (last 24 hrs) 06/22/22 02:58: Sodium 127 L, Potassium 3.8, BUN 10, Creatinine 0.75, Glucose 93, Phosphorus 4.7, Magnesium 2.2, Triglycerides 210 H, Cholesterol 199, HDL Cholesterol 40, Cholesterol/HDL Ratio 4.98 06/22/22 02:58: WBC 4.60, Hgb 13.7 D, Hct 39.6, Plt Count 265 06/21/22 22:33: Sodium 128 L D, Potassium 3.7, BUN 9, Creatinine 0.79, Glucose 129 H 06/21/22 16:35: Sodium 123 L, Potassium 3.6, BUN 10, Creatinine 0.83, Glucose 111 H, Total Bilirubin 0.3, AST 16, ALT 36, Alkaline Phosphatase 94, Lipase 21 06/21/22 16:35: WBC 5.50, Hgb 14.9, Hct 42.4, Plt Count 291 Conclusions/Impression: 36M w/ PMHx of seizure on tegretol for years, was told by PCP at [facility] that his serum Na's have been somewhat low for the past several mos, recent sick contact, then developed acute viral prodrome w/ abd pain/N/V & anorexia 3 days ago. # Hypotonic, euvolemic, chronic, symptomatic, moderate-degree hypoNa 2/2 appropriate ADH release from abd pain/N/V + low solute intake +/- Tegretol Serum Na 123 on adm, improved to 127 this am & 128 this pm F/u BNP Cont NS gtt 75 cc/hr Add NaCl 2g po tid x 6 doses Anti-emetics prn Tylenol prn for mild pain. Tramadol prn for mod pain. Avoid/minimize morphine & other narcotics. Advised on adeq po solid food intake TID Serum Na long-term goal > 130 meq/L to avoid/prevent imbalance/falls # Abdominal pain/N/V/Fever/anorexia likely 2/[address] A/P no acute pathology Symptomatic therapy # Seizure disorder Cont Tegretol as he has been doing very well on this medication for many years
[2022-06-22 16:28] LABS: Potassium 4.2 mEq/L (3.5-5.1)
[2022-06-22] MEDS ORDERED: ACETAMINOPHEN 325 MG TABLET PO PRN (17:14)
[2022-06-22] MEDS ORDERED: TRAMADOL HCL 50 MG TAB PO PRN (17:15)
[2022-06-22] MEDS: SODIUM CHLORIDE 1 GM TAB PO SCH (20:34)
[2022-06-22] MEDS: carBAMazepine 200 MG TAB PO SCH ×2 (20:35→20:39)
[2022-06-22] MEDS ORDERED: levETIRAcetam 500 MG TAB PO SCH (21:00)
[2022-06-22 23:42] LABS: Potassium 3.5 mEq/L (3.5-5.1)
[2022-06-23] MEDS: SODIUM CHLORIDE 1 GM TAB PO SCH ×3 (07:21→20:18)
[2022-06-23] MEDS: carBAMazepine 200 MG TAB PO SCH ×2 (07:22→20:04)
[2022-06-23] MEDS ORDERED: POTASSIUM CL SA 10 MEQ TAB PO ONE (07:30)
[2022-06-23 08:10] LABS: Magnesium 2.2 mg/dL (1.6-2.4); Phosphorus 3.8 mg/dL (2.5-4.9); Potassium 4.1 mEq/L (3.5-5.1)
[2022-06-23] MEDS: NA CHLORIDE 0.9% 1,000 ML IV SCH (09:08)
[2022-06-23] MEDS ORDERED: FUROSEMIDE 20 MG/ 2ML VIAL IV ONE (10:00)
[2022-06-23 12:34] LABS: Specific Gravity 1.008 (1.005-1.030); Urine Bilirubin NEGATIVE (Negative); Urine Blood Negative (Negative); Urine Clarity Clear (Clear); Urine Color Colorless (Yellow); Urine Glucose NEGATIVE (Negative); Urine Protein NEGATIVE (Negative); Urine Urobilinogen Normal (Normal)
--- NOTE | 2022-06-23 12:48 | PN ---
Date of Progress Note: 06/23/2022 Subjective: The patient was admitted with hyponatremia secondary to SIADH secondary to atypical pneumonia and poor intake. The patient was also started on IV hydration with normal saline, and salt tablet sodium trending up appropriately. Physical Examination: Vital Signs: Blood pressure 121/76, pulse of 56, afebrile. : The patient had good urine output, voiding. Chest: Clear to auscultation. Heart: S1, S2 regular. Abdomen: Soft nontender. Extremities: No edema. Neurologic: Alert. No focality. Laboratory Data: Hemoglobin 13.7. Sodium 129, potassium 4.1, bicarb 26, BUN 7, creatinine 0.7. Calcium 8.6, phosphorus 2.8, magnesium 2.2. TSH 3.8. Current Medications: The patient on include: 1. Carbamazepine. 2. Tylenol. 3. Keppra. 4. Zofran. 5. IV fluid. 6. Salt tablet 2 g t.i.d. Assessment And Plan: 1. Hyponatremia secondary to possible secondary SIADH secondary to the pain/atypical pneumonia on the recovery appropriate ADH stimulation status post tolvaptan continue salt tablet, discontinue IV fluid. Give single dose of Lasix, and we will monitor the patient if sodium continue to improve by tomorrow. The patient okay to be discharged to follow up in 2-3 weeks, and we will monitor. 2. Seizure. The patient on currently Keppra and carbamazepine. We will follow up. We are not going to change seizure medication for the time being. 3. Gastroenteritis. Continue supportive treatment, symptomatic treatment. We will follow up with the primary. MA/MODLTime spent examining the patient [id number], reviewing data, lab and radiology, placing order, discussing the case with the patient and steam flattener including hospitalist and nurses more than 35 minutes. Report ID: [id number] MELISSA
[2022-06-23 16:07] LABS: Potassium 3.7 mEq/L (3.5-5.1)
--- NOTE | 2022-06-23 16:54 | P.PN ---
Subjective Date of Service: 06/23/22 Chief Complaint: Hyponatremia Patient has no new complaint. Sodium level is up to 129. No abdominal pain today. Physical Examination - Vital Signs Temperature: 97.3 F Blood Pressure: 128/88 Pulse: 81 Respirations: 16 Pulse Ox (%): 96 Assessment And Plan - Current Problems (Diagnosis) (1) Hyponatremia Current Visit: Yes Status: Acute (2) Right lower quadrant abdominal pain Current Visit: Yes Status: Acute (3) Epilepsy Current Visit: Yes Status: Chronic Qualifiers: Epilepsy type: unspecified Intractability: not intractable Status epilepticus: without status epilepticus Qualified Code(s): G40.909 - Epilepsy, unspecified, not intractable, without status epilepticus - Plan Physical Exam General: Alert, In no apparent distress Neck: Supple. Respiratory: Clear to auscultation bilaterally, Normal air movement Cardiovascular: Regular rate/rhythm, Normal S1 S2 Gastrointestinal: Normal bowel sounds, Non-distended, No masses, No rebound, No guarding, No tenderness Musculoskeletal: No tenderness Integumentary: No rashes Neurological: Normal speech, Normal affect. Plan: Sodium level improved to 129. Case discussed with Neurology-Dr. Cande Castellon recommend Keppra 1g IVPB loading dose x 1, then Keppra 500 mg po bid but patient would like to continue his Tegretol. No dose changes. Nephrology input appreciated. Patient started on oral sodium replacement. Monitor sodium level. Fluid restriction. CT abdomen and pelvis: no abdominal pathology, no appendicitis No abdominal pain today. Physician Review: Patient Assessed, Agree with Above Assessment and Plan
[2022-06-23 23:33] LABS: Potassium 3.9 mEq/L (3.5-5.1)
[2022-06-24 03:47] LABS: Albumin 3.8 g/dL (3.4-5.0); Uric Acid 3.1 mg/dL (3.5-7.2)
[2022-06-24] MEDS: carBAMazepine 200 MG TAB PO SCH (08:00)
[2022-06-24] MEDS: SODIUM CHLORIDE 1 GM TAB PO SCH (08:29)
[2022-06-24 09:05] VITALS: BP 105/63; TEMP 98
--- NOTE | 2022-06-24 11:31 | P.DS ---
Admission Date: 06/22/22 Discharge Date: 06/24/22 Disposition: ROUTINE DISCHARGE Discharge Condition: FAIR Reason for Admission: Hyponatremia - Problems (1) Hyponatremia Current Visit: Yes Status: Acute (2) Right lower quadrant abdominal pain Current Visit: Yes Status: Acute (3) Epilepsy Current Visit: Yes Status: Chronic Qualifiers: Epilepsy type: unspecified Intractability: not intractable Status epilepticus: without status epilepticus Qualified Code(s): G40.909 - Epilepsy, unspecified, not intractable, without status epilepticus Brief History of Present Illness: Mr. Wilson is a 36 year old male with past medical history of epilepsy who presented to the emergency department with complaints of 2 days of right lower quadrant pain. He denied nausea, vomiting, diarrhea, constipation, abdominal distension, anorexia, melena, fever. CT did not reveal anything to explain the patient's symptoms. His labs incidentally revealed a sodium of 123. He does take tegretol daily for epilepsy, has not had a seizure in 10+ years, and does not think he has had issues with hyponatremia in the past. Given his unexplained abdominal pain and hyponatremia, patient was hospitalized for further management. Hospital Course: Patient admitted to the medical floor and treated with IV normal saline for hyponatremia. Case discussed with Neurology-Dr. Cande Castellon recommended Keppra 1g IVPB loading dose x 1, then Keppra 500 mg po bid but patient decided to continue his Tegretol. No dose changes. Seen by nephrology. Patient started on oral sodium replacement. Sodium level improved to 130. Fluid restriction recommended, up to [address] abdomen and pelvis: no abdominal pathology, no appendicitis Abdominal pain resolved. Nephrology recommended oral sodium replacements and Lasix on discharge. Vital Signs/Physical Exam: Temp Pulse Resp BP Pulse Ox 98.0 F 80 16 105/63 96 06/24/22 08:00 06/24/22 08:00 06/24/22 08:00 06/24/22 08:00 06/24/22 08:00 General: Alert, In no apparent distress, Oriented x3 HEENT: Mucous membr. moist/pink Neck: Supple, JVD not distended Respiratory: Clear to auscultation bilaterally, Normal air movement Cardiovascular: No edema, Regular rate/rhythm, Normal S1 S2 Gastrointestinal: Soft and benign, Non-distended, No tenderness Musculoskeletal: No swelling Integumentary: No cyanosis Neurological: Normal strength at 5/5 x4 extr Laboratory Data at Discharge: WBC 4.60 thou/uL (4.3-10.9) 06/22/22 02:58 Hgb 13.7 g/dL (13.6-17.9) D 06/22/22 02:58 Hct 39.6 % (39.6-49.0) 06/22/22 02:58 Plt Count 265 thou/uL (152-406) 06/22/22 02:58 Sodium 130 mEq/L (136-145) L 06/24/22 03:13 Potassium 4.0 mEq/L (3.5-5.1) 06/24/22 03:13 BUN 17 mg/dL (7-18) 06/24/22 03:13 Creatinine 0.79 mg/dL (0.70-1.30) 06/24/22 03:13 Glucose 103 mg/dL (74-106) 06/24/22 03:13 Uric Acid 3.1 mg/dL (3.5-7.2) L 06/24/22 03:13 Phosphorus 5.0 mg/dL (2.5-4.9) H 06/24/22 03:13 Magnesium Cancelled 06/23/22 Unknown Total Bilirubin 0.3 mg/dL (0.2-1.0) 06/21/22 16:35 AST 16 U/L (15-37) 06/21/22 16:35 ALT 36 U/L (16-61) 06/21/22 16:35 Alkaline Phosphatase 94 U/L (45-117) 06/21/22 16:35 Triglycerides 210 mg/dL (<150) H 06/22/22 02:58 Cholesterol 199 mg/dL (<200) 06/22/22 02:58 HDL Cholesterol 40 mg/dL (40-60) 06/22/22 02:58 Cholesterol/HDL Ratio 4.98 06/22/22 02:58 Lipase 21 U/L (13-75) 06/21/22 16:35 Home Medications: Carbamazepine [Tegretol] 600 mg PO BEDTIME 06/21/22 carBAMazepine [Tegretol] 400 mg PO DAILY WITH BREAKFAST 06/21/22 Furosemide [Lasix] 20 mg PO DAILY #30 tab 06/24/22 Sodium Chloride Tab [Sodium Chloride*] 2 gm PO TID #180 tab 06/24/22 New Medications: Furosemide [Lasix] 20 mg PO DAILY #30 tab Sodium Chloride Tab [Sodium Chloride*] 2 gm PO TID #180 tab Physician Discharge Instructions: Fluid restriction up to 1500 ml per day. Diet: AHA Activity: Ad aimee Followup: OOT,OOT [Primary Care Provider] - Aida Garcia MD [ACTIVE - CAN ADMIT] - 1-2 Weeks Rubin Castellon MD [ASSOCIATE-ACTIVE - CAN ADMIT] - 1-2 Weeks Time spent managing pt's care (in minutes): 35
[2022-06-24] MEDS ORDERED: FUROSEMIDE 20 MG/ 2ML VIAL IV ONE (11:45)
--- NOTE | 2022-06-24 13:44 | PN ---
Date of Progress Note: 06/24/2022 Subjective: The patient was admitted with hyponatremia secondary to psych medication. The patient w as treated . Yesterday, we had Lasix and discontinued IV fluid. Sodium continued to rise. Physical Examination: Vital Signs: When I saw the patient, blood pressure 105/63, pulse of 80, afebrile. Chest: Clear to auscultation. Heart: S1, S2 regular. Abdomen: Soft, nontender. Extremities: No edema. Neurologic: Alert. No focality. Laboratory Data: Hemoglobin 13.7. Sodium 130, potassium 4, bicarb 26, BUN 17, creatinine 0.7. Uric acid 3.1. Calcium 8.9, phosphorus 5. Urinalysis, specific gravity 1.008. Current Medications: The patient on include: 1.Zofran. 2.Carbamazepine. 3.Tylenol. 4.KCl. 5.Sodium chloride 2 g t.i.d. Assessment And Plan: 1.Hyponatremia secondary to atypical pneumonia/SIADH confirmed with low uric acid and high osmolalit y and high sodium. The patient responds to current treatment. I am going to continue with the Lasix and salt tablet 2 g b.i.d., and we will follow up the patient. The [facility] cleared from [facility] for discharge planning. We will monitor. 2.Seizure. Continue current treatment with carbamazepine and Keppra for the time being, further adj ustment as outpatient. We will follow up. 3.Gastroenteritis, resolved. 4.Hypokalemia, status post supplement, resolved. TIANA/GARRISON Voice ID: [id number] Report ID: [id number]
== END 2022-06-24 13:21 | disposition home or self-care (01) | DRG 643 ==
LOC: ER 15:32 → ERHOLD 18:44 → 2ND 20:03 → OBSVTOIN 06-22 14:53
PROVIDERS: ADMIT Internal Medicine; ATTEND Internal Medicine
DX: E22.2 Syndrome of inappropriate secretion of antidiuretic hormone (principal); J18.9 Pneumonia, unspecified organism; N28.1 Cyst of kidney, acquired; E87.6 Hypokalemia; K52.9 Noninfective gastroenteritis and colitis, unspecified; K40.90 Unilateral inguinal hernia, without obstruction or gangrene, not specified as recurrent; G40.909 Epilepsy, unspecified, not intractable, without status epilepticus; T43.505A Adverse effect of unspecified antipsychotics and neuroleptics, initial encounter; Z79.899 Other long term (current) drug therapy
CPT/HCPCS: 36415; 74177; 80048; 80053; 80061; 80069; 81003; 83036; 83690; 83735; 83880; 83930; 83935; 84100; 84132; 84300; 84439; 84443; 84550; 85025; 96374; 96375; 99285; G0378; J1940; J1953; J2270; J2405; J7030; Q9967